=== PATIENT | female | born 1940 | race Caucasian/White ===

== ENCOUNTER 2019-11-06 20:02 | Emergency (ER) | payer MEDICARE, MEDICAID ==
[~2019-11-06] VITALS: Ht 170.2 cm; Wt 68.0 kg
[2019-11-06 20:05] VITALS: BP 130/70
--- NOTE | 2019-11-06 20:05 | NUR ---
ED Nurse Note: Pt brought in by BETSY ANGLIN [id number] for c/o etoh intoxication. Pt was found at a [place] restaurant where she became too intoxicated causing a scene with management and SHAILA was called. Pt denies pain, no complaints noted. Pt is rambling but is aaox4, no cardiac or respiratory distress noted. Will continue to monitor.
--- NOTE | 2019-11-06 20:25 | NUR ---
ED Nurse Note: Pt being extremely uncooperative and combative at this time and not listening to staff, security called. Pt yelling at RN and tech.
--- NOTE | 2019-11-06 22:00 | NUR ---
ED Nurse Note: Pt is sleeping in bed at this time. No acute distress noted.
--- NOTE | 2019-11-06 23:40 | Emergency Room Report ---
History of Present Illness General Chief Complaint: Alcohol Intoxication Source: Patient Present Illness HPI 79-year-old female presents with acute alcohol intoxication history is limited due to patient slurring her words and yelling at everyone, patient reports drinking prior to arrival aggravated with alcohol alleviated by not drinking severity is moderate, constant she denies any head trauma states that you cannot keep me here against my will and continues walking around the ED yelling at people. Allergies: Coded Allergies: No Known Allergies (Unverified , 11/06/19) Patient History Limited by: medical condition - Acute intoxication Past Medical History: see triage record Last Menstrual Period: NA : 3 Para: 0 Reviewed Nursing Documentation: PMH: Agreed; PSxH: Agreed Nursing Documentation-PMH Hx Cardiac Problems: Yes Hx Hypertension: Yes Hx Gastrointestinal Problems: Yes - SPLEENECTOMY Review of Systems All Other Systems: limited - Acute intoxication Physical Exam Vital Signs Date Time Temp Pulse Resp B/P (MAP) Pulse Ox O2 Delivery O2 Flow Rate FiO2 11/06/19 19:53 98.2 80 18 130/70 (90) 99 Sp02 EP Interpretation: reviewed, normal General Appearance: well appearing, no apparent distress, alert Head: normocephalic, atraumatic Eyes: bilateral eye PERRL, bilateral eye EOMI ENT: uvula midline, moist mucus membranes Neck: supple, thyroid normal, supple/symm/no masses Respiratory: lungs clear, no respiratory distress, no retraction, no accessory muscle use Cardiovascular #1: normal peripheral pulses, regular rate, rhythm, no edema, no gallop, no murmur Gastrointestinal: non tender, soft, no guarding, no rebound Musculoskeletal: normal inspection Neurologic: alert, oriented x3 Psychiatric: mood/affect normal Skin: no rash, warm/dry Medical Decision Making Diagnostic Impression: Primary Impression: Acute alcoholic intoxication Qualified Codes: F10.920 - Alcohol use, unspecified with intoxication, uncomplicated ER Course 79-year-old female presents with acute alcohol intoxication counseled patient to remain at bedside spoke with Cherry on the phone stating that she may return when she is sober Cherry is her roommate Differential diagnosis acute alcohol intoxication, substance abuse, altered mental status Reevaluation 11:39 PM patient with a stable gait walking around without any issues, patient states she will use an Uber to go home Disposition home with return precautions Last Vital Signs Date Time Temp Pulse Resp B/P (MAP) Pulse Ox O2 Delivery O2 Flow Rate FiO2 11/06/19 20:05 80 18 11/06/19 20:05 98.2 130/70 99 Disposition: HOME, SELF-CARE Condition: Stable Referrals: [facility] Patient Instructions: Alcohol Use Disorder, Alcohol Intoxication, [id number] Additional Instructions: The patient was provided with discharge instructions, notified to follow-up with a primary care doctor and or specialist in the next 24-48 hours, and to return to the ED if they have worsening of their symptoms. Please note that this report is being documented using [employer] technology. This can lead to erroneous entry secondary to incorrect interpretation by the dictating instrument. Abdifatah Jiménez MD Nov 06, 2019 23:40
--- NOTE | 2019-11-07 | NUR ---
ED Nurse Note: Pt is awake and verbalizing she is ready to go home at this time. Pt is aaox4, ambulatory with steady gait. Will assist patient to order uber to take her home.
[2019-11-07 00:50] VITALS: BP 125/85
--- NOTE | 2019-11-07 00:50 | NUR ---
ER DISCHARGE NOTE: Patient is cleared to be discharged per ERMD, pt is aox4, on room air, with stable vital signs. Pt was given dc instructions and pt was able to verbalize understanding. Pt ID band removed. RN assisted pt order uber on her cell phone, pt able to ambulate to uber car with steady gait and uber verified. Pt took all belongings.
== END 2019-11-07 00:50 | disposition home or self-care (01) ==
LOC: EDBD 20:02 → EMR 23:12
DX: F10.920 Alcohol use, unspecified with intoxication, uncomplicated (principal); I10 Essential (primary) hypertension; I51.9 Heart disease, unspecified
CPT/HCPCS: 96374; 96375; 99284